=== PATIENT | female | born 1940 | race Caucasian/White ===

== ENCOUNTER 2016-09-10 08:19 | Day surgery (SDC) | payer MEDICARE, BC ==
[2016-09-06 12:05] VITALS: BMI 28.0
[2016-09-10 08:46] VITALS: TEMP 98.2
[2016-09-10] MEDS: LACTATED RINGERS 1,000 ML IV ONE ×2 (09:01→09:46)
[2016-09-10] MEDS ORDERED: LIDOCAINE 1% 20 ML VIAL (10MG/ML) FOR IV START INTRADERMA ONE (09:01)
[2016-09-10] MEDS ORDERED: LIDOCAINE 1% INJ 10MG/ML (20 ML MDV) ONE (09:48)
[2016-09-10] MEDS ORDERED: PROPOFOL 10 MG/ML 20 ML VIAL IV ONE (09:48)
[2016-09-10] MEDS ORDERED: MIDAZOLAM 2 MG/2 ML VIAL ONE (09:48)
--- NOTE | 2016-09-10 10:09 | P.GSHP ---
History of Present Illness H&P Date: 09/10/16 Chief Complaint: Peptic ulcer disease, dysphagia This is a 76-year-old female referred from Dr. Kearns. Patient has complaints of some intermittent cervical dysphagia as well as a history of peptic ulcer disease. She presents today for EGD. She's had an esophagram which is normal. Past Medical History Past Medical History: GERD/Reflux, Hyperlipidemia, Osteoarthritis (OA) Additional Past Medical History / Comment(s): varicose veins, currently having feeling that something is stuck in her throat, stomach ulcer. History of Any Multi-Drug Resistant Organisms: None Reported Past Surgical History: Section, Cholecystectomy, Hernia Repair, Hysterectomy, Joint Replacement, Orthopedic Surgery, Tubal Ligation Additional Past Surgical History / Comment(s): D&C, arthoscopy right knee, right knee replacement, colonoscopy, EGD. Past Anesthesia/Blood Transfusion Reactions: Previous Problems w/ Anesthesia, Postoperative Nausea & Vomiting (PONV) Additional Past Anesthesia/Blood Transfusion Reaction / Comment(s): spinal anesthesia severe PONV Past Psychological History: No Psychological Hx Reported Smoking Status: Never smoker Past Alcohol Use History: Daily Additional Past Alcohol Use History / Comment(s): States soaks 20 yellow raisins in Gin and eats them every day. Past Drug Use History: None Reported - Past Family History Father Family Medical History: Cancer Medications and Allergies Home Medications Medication Instructions Recorded Confirmed Type Aspirin 81 mg PO DAILY 02/23/14 09/10/16 History Loratadine [Claritin] 10 mg PO HS 02/23/14 09/10/16 History Omeprazole [PriLOSEC] 20 mg PO BID 02/23/14 09/10/16 History Enzacta 1 tab PO DAILY 07/04/16 09/10/16 History Equate Stool Softener 100 mg PO DAILY 07/04/16 09/10/16 History L.acidoph,Paracasei, B.lactis 1 each PO DAILY 07/04/16 09/10/16 History [Probiotic] Multivitamins, Thera [Multivitamin] 2 tab PO DAILY 07/04/16 09/10/16 History Rosuvastatin Calcium [Crestor] 10 mg PO HS 07/04/16 09/10/16 History Areds 1 tab PO DAILY 09/06/16 09/10/16 History Propylene Glycol/Peg 400/Pf 1 drop BOTH EYES DIRECTED PRN 09/06/16 09/10/16 History [Systane 0.3-0.4% Eye Drops] Allergies Allergy/AdvReac Type Severity Reaction Status Date / Time No Known Allergies Allergy Verified 09/10/16 08:33 Surgical - Exam Vital Signs Temp Pulse Resp BP Pulse Ox 98.2 F 64 18 184/84 98 09/10/16 08:45 09/10/16 08:45 09/10/16 08:45 09/10/16 08:45 09/10/16 08:45 - General well developed, no distress - Eyes PERRL - ENT normal pinna - Neck no masses - Respiratory normal expansion - Cardiovascular Rhythm: regular - Abdomen Abdomen: soft, non tender Assessment and Plan Plan: Peptic ulcer disease Intermittent dysphagia We'll perform EGD.
--- NOTE | 2016-09-10 10:18 | P.OP ---
Date of Procedure: 09/10/16 Preoperative Diagnosis: Peptic ulcer disease Postoperative Diagnosis: Antral ulcer Procedure(s) Performed: EGD Anesthesia: MAC Surgeon: Mihir Malave Pathology: other (Antrum) Condition: stable Disposition: PACU Description of Procedure: The patient's placed on the endoscopy table in the lateral position. She received IV sedation. The gastroscope some placed oropharynx the cervical esophagus and hypopharynx were examined. There is known to any inflammation to explain the patient's symptoms of something being stuck in her neck. The scope was then placed the esophagus and passed down to the stomach and into the first and second portion of duodenum. This appeared normal. The scope was then brought back the antrum and there was a small antral ulcer seen. This was biopsied. Scope was retroflexed and remainder stomach appeared normal. Scope was then brought back into the distal esophagus this appeared normal. There is no evidence of a hiatal hernia. The distal esophagus. Normal. The scope was then brought back the proximal esophagus this appeared normal. Scope withdrawn for patient.
[2016-09-10 10:37] VITALS: RESP 18
[2016-09-10 10:57] VITALS: BP 155/80; PULSE 62
== END 2016-09-10 11:02 | disposition home or self-care (01) ==
LOC: ORWHC2ENDO 08:19
PROVIDERS: ATTEND Surgery
DX: K25.9 Gastric ulcer, unspecified as acute or chronic, without hemorrhage or perforation (principal); K29.50 Unspecified chronic gastritis without bleeding; Z87.11 Personal history of peptic ulcer disease; K21.9 Gastro-esophageal reflux disease without esophagitis; E78.5 Hyperlipidemia, unspecified; M19.90 Unspecified osteoarthritis, unspecified site; Z79.82 Long term (current) use of aspirin; Z79.899 Other long term (current) drug therapy
CPT/HCPCS: 88305; 88342; 43239; J2250; J2001; J2704; 99153

== ENCOUNTER 2016-11-01 07:53 | Day surgery (SDC) | payer MEDICARE, BC ==
[2016-10-30 10:35] VITALS: BMI 27.4
[~2016-11-01 07:53] MED LIST: LACTATED RINGERS 1,000 ML IV SCH; LIDOCAINE 1% 20 ML VIAL (10MG/ML) FOR IV START INTRADERMA PRN
[2016-11-01 08:07] VITALS: RESP 16; TEMP 97.5
[2016-11-01] MEDS ORDERED: PROPOFOL 10 MG/ML 20 ML VIAL IV ONE (08:32)
[2016-11-01] MEDS ORDERED: LIDOCAINE 1% INJ 10MG/ML (20 ML MDV) ONE (08:32)
--- NOTE | 2016-11-01 08:40 | P.GSHP ---
History of Present Illness H&P Date: 11/01/16 Chief Complaint: Peptic ulcer disease Cyst 76-year-old female who's had complaints of epigastric pain. She has a previous history of gastric ulcer. She presents today for EGD. - Constitutional Constitutional: Reports as per HPI Past Medical History Past Medical History: GERD/Reflux, Hyperlipidemia, Osteoarthritis (OA), Pneumonia Additional Past Medical History / Comment(s): varicose veins, pneumonia 2-3 years ago, ulcer History of Any Multi-Drug Resistant Organisms: None Reported Past Surgical History: Section, Cholecystectomy, Hernia Repair, Hysterectomy, Orthopedic Surgery, Tubal Ligation Additional Past Surgical History / Comment(s): D&C, arthoscopy right knee, right knee replacement, colonoscopy, EGD. Past Anesthesia/Blood Transfusion Reactions: No Reported Reaction Past Psychological History: No Psychological Hx Reported Smoking Status: Never smoker Past Alcohol Use History: Daily Additional Past Alcohol Use History / Comment(s): States takes 10 raisens soaked in Gin and eats them every day. Past Drug Use History: None Reported - Past Family History Father Family Medical History: Cancer Medications and Allergies Home Medications Medication Instructions Recorded Confirmed Type Aspirin 81 mg PO DAILY 02/23/14 10/30/16 History Loratadine [Claritin] 10 mg PO HS 02/23/14 10/30/16 History Equate Stool Softener 100 mg PO DAILY 07/04/16 10/30/16 History L.acidoph,Paracasei, B.lactis 1 each PO HS 07/04/16 10/30/16 History [Probiotic] Multivitamins, Thera [Multivitamin] 2 tab PO DAILY 07/04/16 10/30/16 History Ranitidine HCl 150 mg PO HS 10/30/16 11/01/16 History Vit C/E/Zn/Coppr/Lutein/Zeaxan 1 each PO BID 10/30/16 11/01/16 History [Preservision Areds 2 Softgel] Allergies Allergy/AdvReac Type Severity Reaction Status Date / Time No Known Allergies Allergy Verified 10/30/16 10:21 Surgical - Exam Vital Signs Temp Pulse Resp BP Pulse Ox 97.5 F L 68 16 169/85 96 11/01/16 08:06 11/01/16 08:06 11/01/16 08:06 11/01/16 08:11/01/16 08:06 - General well developed, no distress - Eyes PERRL - ENT normal pinna - Neck no masses - Respiratory normal expansion - Cardiovascular Rhythm: regular - Abdomen Abdomen: soft, non tender Assessment and Plan Plan: Peptic ulcer disease. We'll perform EGD.
--- NOTE | 2016-11-01 08:54 | P.OP ---
Date of Procedure: 11/01/16 Preoperative Diagnosis: Peptic ulcer disease Postoperative Diagnosis: Antral gastritis Procedure(s) Performed: EGD Anesthesia: MAC Surgeon: Mihir Malave Pathology: other (Antrum) Condition: stable Disposition: PACU Description of Procedure: The patient's placed on the endoscopy table lateral position. She received IV sedation. The gastroscope some placed oropharynx passed in the esophagus and stomach. The scope was then placed through the pylorus. The first and second portion of the duodenum appeared normal. Scope was then brought back the antrum and antrum appeared inflamed. There the previously seen ulcer had healed. A biopsy antrum performed. The scope was retroflexed the remainder of the stomach some appeared normal. The GE junction was at 39 cm. The distal esophagus appeared normal. The proximal esophagus appeared normal. Scope was withdrawn for patient.
[2016-11-01 09:08] VITALS: BP 147/67; PULSE 63
== END 2016-11-01 09:48 | disposition home or self-care (01) ==
LOC: ORWHC2ENDO 07:53
PROVIDERS: ATTEND Surgery
DX: K29.50 Unspecified chronic gastritis without bleeding (principal); K21.9 Gastro-esophageal reflux disease without esophagitis; E78.5 Hyperlipidemia, unspecified; M19.90 Unspecified osteoarthritis, unspecified site; Z79.82 Long term (current) use of aspirin; Z79.899 Other long term (current) drug therapy; Z87.11 Personal history of peptic ulcer disease
CPT/HCPCS: 43239; 88305; 88342; J2001; J2704

== ENCOUNTER → 2018-07-02 | Outpatient (CLI) | payer MEDICARE, BC ==
[2018-07-02 15:51] LABS: Appearance,Urine Clear (Clear); Bilirubin,Urine Negative (Negative); Blood,Urine Negative (Negative); Color,Urine Light Yellow; Glucose,Urine (UA) Negative (Negative); Ketones,Urine Negative (Negative); Leukocyte Esterase,Urine Negative (Negative); Nitrite,Urine Negative (Negative); PH, Urine 7.5 (5.0-8.0); Protein,Urine Negative (Negative); Specific Gravity,Urine 1.009 (1.001-1.035); Urobilinogen,Urine <2.0 mg/dL (<2.0)
[2018-07-02 15:55] LABS: HCT 44.3 % (34.0-46.0); HGB 13.7 gm/dL (11.4-16.0); MCH 28.1 pg (25.0-35.0); MCHC 30.9 g/dL (31.0-37.0); MCV 90.7 fL (80.0-100.0); Mean Platelet Volume 6.9; Platelet Count 223 k/uL (150-450); RBC 4.88 m/uL (3.80-5.40); RDW 14.4 % (11.5-15.5); WBC 4.6 k/uL (3.8-10.6)
[2018-07-02 16:06] LABS: Partial Thromboplastin Time 23.7 sec (22.0-30.0); Prothrombin Time 10.2 sec (9.0-12.0)
[2018-07-02 16:47] LABS: Albumin 3.8 g/dL (3.5-5.0); Calcium 9.5 mg/dL (8.4-10.2); Total Bilirubin 0.6 mg/dL (0.2-1.3); Total Protein 6.8 g/dL (6.3-8.2)
== END ==
LOC: LABPAT 14:06
PROVIDERS: ATTEND Orthopaedic Surgery
DX: Z01.818 Encounter for other preprocedural examination (principal); Z01.812 Encounter for preprocedural laboratory examination; Z79.01 Long term (current) use of anticoagulants
CPT/HCPCS: 80053; 81003; 85027; 85610; 85730; 87070; 93005

== ENCOUNTER 2018-07-14 12:55 | Inpatient (IN) | payer MEDICARE, BC ==
[2018-07-10 08:32] VITALS: BMI 29.0
[~2018-07-14 12:55] MED LIST changes: +ACETAMINOPHEN TAB 500 MG TAB PO ONE; +HYDROmorphone 1 MG/ML 1 ML SYRINGE IVP PRN; -LACTATED RINGERS 1,000 ML IV SCH; -LIDOCAINE 1% 20 ML VIAL (10MG/ML) FOR IV START INTRADERMA PRN; +MIDAZOLAM 2 MG/2 ML VIAL IV PRN; +ONDANSETRON 4 MG/2 ML VIAL IVP ONE; +TRANEXAMIC ACID 1,000 MG in SODIUM CHLORIDE 0.9% 50 ML IVPB ONE
[2018-07-14] MEDS ORDERED: LIDOCAINE 1% 20 ML VIAL (10MG/ML) FOR IV START INTRADERMA ONE (13:44)
[2018-07-14] MEDS: LACTATED RINGERS 1,000 ML IV SCH ×2 (13:44→21:44)
[2018-07-14] MEDS ORDERED: fentaNYL (PF) 50 MCG/ML 2 ML AMP ONE (15:24)
[2018-07-14] MEDS: ceFAZolin IN SWFI 2 GM/20 ML SYRINGE IVP ONE ×2 (15:24→16:07)
[2018-07-14] MEDS ORDERED: TRANEXAMIC ACID 1,000 MG/10 ML VIAL ONE (15:24)
[2018-07-14] MEDS ORDERED: MIDAZOLAM 2 MG/2 ML VIAL ONE (15:24)
[2018-07-14] MEDS ORDERED: SODIUM CHLORIDE 0.9% 100 ML BAG ONE (15:24)
[2018-07-14] MEDS: ROPIVACAINE 246.25 MG, EPINEPHrine 0.5 MG, KETOROLAC 30 MG, cloNIDine HCL/PF 80 MCG, WA... MISCELLANE ONE ×10 (16:07→16:40)
[2018-07-14] MEDS ORDERED: ceFAZolin 3,000 MG in SODIUM CHLORIDE 0.9% IRRIGATIO 3,000 ML IRRIGATION ONE (16:07)
[2018-07-14] MEDS ORDERED: NALOXONE 0.4 MG/ML 1 ML VIAL IV PRN (17:45)
[2018-07-14] MEDS ORDERED: HYDROmorphone 1 MG/ML 1 ML SYRINGE IVP PRN ×3 (17:45)
[2018-07-14] MEDS ORDERED: HYDROcodone/APAP 5-325MG 1 EACH TAB PO PRN ×2 (17:45)
[2018-07-14] MEDS ORDERED: BISACODYL 10 MG SUPP RECTAL PRN (17:45)
[2018-07-14] MEDS ORDERED: NA PHOS,M-B/NA PHOS,DI-BA 133 ML ENEMA RECTAL PRN (17:45)
[2018-07-14] MEDS ORDERED: ONDANSETRON 4 MG/2 ML VIAL IVP PRN (17:45)
[2018-07-14] MEDS ORDERED: TEMAZEPAM 15 MG CAP PO PRN (17:45)
[2018-07-14] MEDS ORDERED: MAGNESIUM HYDROXIDE 2,400 MG/10 ML CUP PO PRN (17:45)
[2018-07-14] MEDS ORDERED: hydrOXYzine PAMOATE 25 MG CAP PO PRN (17:45)
--- NOTE | 2018-07-14 19:09 | XR ---
EXAMINATION TYPE: XR knee limited LT DATE OF EXAM: 07/14/2018 COMPARISON: NONE HISTORY: Postop TECHNIQUE: 2 views FINDINGS: There is a left knee prosthesis. Components are in anatomic position. IMPRESSION: No complicating process seen.
[2018-07-14] MEDS: SENNOSIDES-DOCUSATE SODIUM 1 EACH TAB PO SCH (21:43)
[2018-07-14] MEDS: ceFAZolin IN SWFI 2 GM/20 ML SYRINGE IVP SCH (22:22)
[2018-07-15] MEDS: LACTATED RINGERS 1,000 ML IV SCH ×3 (06:15→20:38)
[2018-07-15 07:42] LABS: Basophils % (A) 0 %; Eosinophils # (A) 0.1 k/uL (0-0.7); Eosinophils % (A) 1 %; HCT 37.9 % (34.0-46.0); HGB 12.1 gm/dL (11.4-16.0); Lymphocytes # (A) 0.7 k/uL (1.0-4.8); Lymphocytes % (A) 8 %; MCH 28.7 pg (25.0-35.0); MCHC 31.9 g/dL (31.0-37.0); MCV 89.8 fL (80.0-100.0); Mean Platelet Volume 7.1; Monocytes # (A) 0.4 k/uL (0-1.0); Monocytes % (A) 4 %; Neutrophils # (A) 7.1 k/uL (1.3-7.7); Neutrophils % (A) 85 %; Platelet Count 174 k/uL (150-450); RBC 4.23 m/uL (3.80-5.40); RDW 14.4 % (11.5-15.5); WBC 8.4 k/uL (3.8-10.6)
[2018-07-15] MEDS: RIVAROXABAN 10 MG TAB PO SCH (08:23)
[2018-07-15] MEDS: MELOXICAM 7.5 MG TAB PO SCH (08:23)
[2018-07-15] MEDS: ceFAZolin IN SWFI 2 GM/20 ML SYRINGE IVP SCH (08:26)
--- NOTE | 2018-07-15 10:29 | P.CONS ---
History of Present Illness - Reason for Consult Consult date: 07/15/18 medical management Requesting physician: Urbano Sharma - Chief Complaint s/p left TKA - History of Present Illness 78-year-old female who underwent elective left total knee arthroplasty. Dr. Kearns was consulted for medical management. The patient has a history of osteoarthritis, pneumonia, and hyperlipidemia. The patient was examined at the bedside with Dr. Kearns. Denies nausea or vomiting. Denies shortness of breath, cough, or congestion. Reports pain is tolerable at this time. Patient is anticipating working with physical therapy today. Vital signs have been stable. REVIEW OF SYSTEMS: GENERAL: Patient denies fever. Denies chills. EYES: Denies blurred vision. Denies vision changes. Denies eye pain. EARS, NOSE, MOUTH, & THROAT: Denies headache. Denies sore throat. Denies ear pain. RESPIRATORY: Denies cough. Denies shortness of breath. Denies sputum production. Denies hemoptysis. CARDIOVASCULAR: Denies chest pain or pressure. Denies palpitations. Denies arrhythmias. GASTROINTESTINAL: Denies abdominal pain. Denies diarrhea. Denies constipation. Denies nausea. Denies vomiting. Denies heartburn. Denies blood in the stool. GENITOURINARY: Denies urinary frequency. Denies burning. Denies dysuria. Denies cloudy urine. Denies blood in the urine. MUSCULOSKELETAL: Denies myalgias. Denies joint swelling. INTEGUMENTARY: Denies pruitis. Denies rash. PSYCHIATRIC: Denies suicidal or homicial ideations. ENDOCRINE: Denies weight change. Denies polydipsia. Denies polyuria. HEMATOLOGIC: Denies bleeding disorders. PHYSICAL EXAM: GENERAL: This is a 78-year-old female in no apparent distress at the time of examination. Pleasant and cooperative. HEENT: Head is atraumatic, normocephalic. Pupils are equal, round, and reactive to light. Sclerae anicteric. Conjunctivae are clear. Mucus membranes of the mouth are moist. Neck is supple. RESPIRATORY: Clear to auscultation. No wheezes, rales, or rhonchi. No use of accessory muscles. Patient maintaining oxygen saturation greater than 92%. No chest wall tenderness is noted on palpation or with deep breathing. CARDIOVASCULAR: Regular rate and rhythm. S1 and S2 noted. Systolic murmur auscultated. No JVD noted. No S3 or S4 noted. GASTROINTESTINAL: No distention noted. Abdomen soft and round. Normal active bowel sounds auscultated x 4 quadrants. No pain or tenderness noted upon palpation. INTEGUMENTARY: Dressing to left knee clean dry and intact. No cyanosis. No jaundice. No rashes noted. No cellulitis noted. EXTREMITIES: 2+ peripheral pulses. No evidence of peripheral edema. No calf tenderness noted. NEUROLOGIC: Cranial nerves II-XII intact. PSYCHIATRIC: Awake, alert, and oriented X 3. Appropriate affect. Intact judgement and insight. ASSESSMENT: Osteoarthritis, status post left total knee arthroplasty Hyperlipidemia PLAN: Continue postoperative care per orthopedics. Activity as tolerated. PT/OT. Pain control. Resume home medications as appropriate. Monitor vital signs and address as appropriate. Incentive spirometer 10 times hour while awake. DVT prophylaxis: Xarelto 10 mg by mouth daily. GI prophylaxis: Pepcid 20 mg daily. Thank you for this consultation. We will continue to follow with the patient during their hospitalization. The patient is stable for discharge from a medical standpoint when cleared for discharge by attending/admitting physician Nurse practitioner note has been reviewed by physician. Signing provider agrees with the documented findings, assessment, and plan of care. Past Medical History Past Medical History: Hyperlipidemia, Osteoarthritis (OA), Pneumonia Additional Past Medical History / Comment(s): varicose veins, pneumonia 2-3 years ago, hx ulcer History of Any Multi-Drug Resistant Organisms: None Reported Past Surgical History: Bladder Surgery, Section, Cholecystectomy, Hernia Repair, Hysterectomy, Joint Replacement, Orthopedic Surgery, Tubal Ligation Additional Past Surgical History / Comment(s): D&C, arthoscopy right knee, right knee replacement, colonoscopy, EGD, [employer]S Past Anesthesia/Blood Transfusion Reactions: Postoperative Nausea & Vomiting ( PONV) Additional Past Anesthesia/Blood Transfusion Reaction / Comm: states with spinal anesthesia Past Psychological History: No Psychological Hx Reported Smoking Status: Never smoker Past Alcohol Use History: None Reported Additional Past Alcohol Use History / Comment(s): States takes 10 raisens soaked in Gin and eats them every day. Past Drug Use History: None Reported - Past Family History Father Family Medical History: Cancer Medications and Allergies Home Medications Medication Instructions Recorded Confirmed Type Aspirin 81 mg PO DAILY 02/23/14 07/14/18 History Loratadine [Claritin] 10 mg PO HS 02/23/14 07/14/18 History L.acidoph,Paracasei, B.lactis 1 cap PO HS 07/04/16 07/14/18 History [Probiotic] Multivitamins, Thera [Multivitamin] 2 tab PO DAILY 07/04/16 07/14/18 History Vit C/E/Zn/Coppr/Lutein/Zeaxan 1 cap PO BID 10/30/16 07/14/18 History [Preservision Areds 2 Softgel] Aspirin [Adult Low Dose Aspirin EC] 81 mg PO DAILY #1 tablet. 07/14/18 Rx Docusate [Colace] 100 mg PO DAILY 07/14/18 07/14/18 History HYDROcodone/APAP 5-325MG [[place] 1 - 2 each PO Q4-6H PRN #50 tab 07/14/18 Rx 5-325] Propylene Glycol/Peg 400/Pf 1 drop BOTH EYES DAILY PRN 07/14/18 07/14/18 History [Systane 0.3-0.4% Eye Drops] Rivaroxaban [Xarelto] 10 mg PO DAILY #5 tab 07/14/18 Rx Sennosides-Docusate Sodium 1 tab PO BID #60 tablet 07/14/18 Rx [Senokot-S] Allergies Allergy/AdvReac Type Severity Reaction Status Date / Time No Known Allergies Allergy Verified 07/14/18 21:30 Physical Exam Vitals: Vital Signs Temp Pulse Pulse Pulse Resp BP Pulse Ox 07/15/18 07:50 98.7 F 71 18 136/68 94 L 07/15/18 00:00 16 07/14/18 23:00 98.5 F 54 L 16 113/55 94 L 07/14/18 21:45 16 07/14/18 21:20 98.2 F 69 16 109/66 97 07/14/18 20:45 65 136/61 94 L 07/14/18 20:37 64 99/52 90 L 07/14/18 20:22 64 111/54 90 L 07/14/18 20:07 62 112/56 89 L 07/14/18 19:52 64 117/53 93 L 07/14/18 19:38 73 135/64 91 L 07/14/18 19:08 66 115/50 95 07/14/18 18:53 63 156/73 93 L 07/14/18 18:43 59 L 16 121/60 93 L 07/14/18 18:28 61 16 142/66 95 07/14/18 18:12 57 L 16 147/74 96 07/14/18 17:57 58 L 16 147/62 94 L 07/14/18 17:42 97.1 F L 67 16 144/66 100 07/14/18 13:29 98.4 F 79 16 158/73 98 Intake and Output 07/14/18 07/15/18 07/15/18 22:59 06:59 14:59 Intake Total 1181 Output Total 125 Balance 1056 Intake: IV 601 Intake, IV Titration 100 Amount Lactated Ringers 1,000 ml 100 @ 100 mls/hr IV .Q10H [facility] Rx#:[id number] Oral 480 Output: Estimated Blood Loss 125 Other: Voiding Method Toilet # Voids 1 1 Results CBC & Chem 7: 07/15/18 06:19 Labs: Abnormal Lab Results - Last 24 Hours (Table) 07/15/18 Range/Units 06:19 Lymphocytes # 0.7 L (1.0-4.8) k/uL
--- NOTE | 2018-07-15 12:55 | P.PN ---
Subjective Progress Note Date: 07/15/18 Principal diagnosis: Primary osteoarthritis left knee. Status post total left knee arthroplasty. This is a 78-year-old female with history of osteoarthritis of the left knee. She is status post total left knee arthroplasty. She is doing well from an orthopedic standpoint. She states that she had some nausea this morning and did not feel well secondary to narcotic pain medication. She refused physical therapy this morning due to feeling ill. She is feeling better at this time but states that she will not be going home today. Vital signs and labs are stable. Objective - Vital Signs Vital signs: Vital Signs Temp 98.7 F 07/15/18 07:50 Pulse 71 07/15/18 07:50 Resp 18 07/15/18 07:50 BP 136/68 07/15/18 07:50 Pulse Ox 94 L 07/15/18 07:50 Intake & Output 07/14/18 07/15/18 07/15/18 18:59 06:59 18:59 Intake Total 901 580 Output Total 125 Balance 776 580 Intake: IV 901 Intake, IV Titration 100 Amount Lactated Ringers 1,000 ml 100 @ 100 mls/hr IV .Q10H [facility] Rx#:[id number] Oral 480 Output: Estimated Blood Loss 125 Other: Voiding Method Toilet # Voids 1 - Exam This is a 78-year-old female in no acute distress. She is alert and oriented 3. Exam of the left knee reveals that her dressing is clean, dry and intact. There is mild soft tissue swelling about the knee. She has full foot and ankle motion without difficulty or pain. Neurovascular status to the lower extremity is intact. - Labs CBC & Chem 7: 07/15/18 06:19 Labs: Abnormal Lab Results - Last 24 Hours (Table) 07/15/18 Range/Units 06:19 Lymphocytes # 0.7 L (1.0-4.8) k/uL Assessment and Plan (1) Macular degeneration Current Visit: Yes Status: Acute Code(s): H35.30 - UNSPECIFIED MACULAR DEGENERATION SNOMED Code(s): 673199594 (2) Hyperlipidemia Current Visit: Yes Status: Acute Code(s): E78.5 - HYPERLIPIDEMIA, UNSPECIFIED SNOMED Code(s): 03019305 (3) Osteoarthritis of left knee Current Visit: Yes Status: Acute Code(s): M17.12 - UNILATERAL PRIMARY OSTEOARTHRITIS, LEFT KNEE SNOMED Code(s): 104609462455128 (4) S/P total knee arthroplasty Current Visit: Yes Status: Acute Code(s): Z96.659 - PRESENCE OF UNSPECIFIED ARTIFICIAL KNEE JOINT SNOMED Code(s): 3640283693894 Plan: The clinical findings are discussed the patient. I recommended that she be evaluated by physical therapy now that she is feeling better and possibly prepare to be discharged to home later today. The patient states that she will not be going home today and that she currently does not have a ride. She became slightly agitated with discussion of possibly going home later today. She is planning for discharge to home tomorrow.
[2018-07-15] MEDS: FAMOTIDINE 20 MG TAB PO SCH (20:38)
[2018-07-15] MEDS: traMADol 50 MG TAB PO PRN (20:38)
[2018-07-15] MEDS: SENNOSIDES-DOCUSATE SODIUM 1 EACH TAB PO SCH (20:38)
[2018-07-15] MEDS ORDERED: FAMOTIDINE 20 MG TAB PO SCH (21:00)
[2018-07-15] MEDS ORDERED: LORATADINE 10 MG TAB PO SCH (21:00)
[2018-07-16] MEDS: LACTATED RINGERS 1,000 ML IV SCH ×2 (01:18→03:19)
[2018-07-16] MEDS: traMADol 50 MG TAB PO PRN ×2 (03:18→08:39)
[2018-07-16 03:23] VITALS: RESP 16
[2018-07-16] MEDS: RIVAROXABAN 10 MG TAB PO SCH (08:39)
[2018-07-16] MEDS: FAMOTIDINE 20 MG TAB PO SCH (08:39)
[2018-07-16] MEDS: MELOXICAM 7.5 MG TAB PO SCH (08:40)
--- NOTE | 2018-07-16 09:11 | P.PN ---
Subjective Progress Note Date: 07/16/18 78-year-old female who underwent elective left total knee arthroplasty. Dr. Kearns was consulted for medical management. The patient has a history of osteoarthritis, pneumonia, and hyperlipidemia. 07/15/2018 The patient was examined at the bedside with Dr. Kearns. Denies nausea or vomiting. Denies shortness of breath, cough, or congestion. Reports pain is tolerable at this time. Patient is anticipating working with physical therapy today. Vital signs have been stable. 07/16/2018 Patient examined at the bedside with Dr. Kearns. Patient reports she did not work with PT yesterday morning because she was not feeling well. She does report that she ambulated in the hallway yesterday afternoon. She denies nausea or vomiting. Reports her pain is tolerable this morning. Denies chest pain or shortness of breath. Vital signs are stable. Anticipate discharge home today. PHYSICAL EXAM: GENERAL: This is a 78-year-old female in no apparent distress at the time of examination. Pleasant and cooperative. HEENT: Head is atraumatic, normocephalic. Pupils are equal, round, and reactive to light. Sclerae anicteric. Conjunctivae are clear. Mucus membranes of the mouth are moist. Neck is supple. RESPIRATORY: Clear to auscultation. No wheezes, rales, or rhonchi. No use of accessory muscles. Patient maintaining oxygen saturation greater than 92%. No chest wall tenderness is noted on palpation or with deep breathing. CARDIOVASCULAR: Regular rate and rhythm. S1 and S2 noted. Systolic murmur auscultated. No JVD noted. No S3 or S4 noted. GASTROINTESTINAL: No distention noted. Abdomen soft and round. Normal active bowel sounds auscultated x 4 quadrants. No pain or tenderness noted upon palpation. INTEGUMENTARY: Dressing to left knee clean dry and intact. No cyanosis. No jaundice. No rashes noted. No cellulitis noted. EXTREMITIES: 2+ peripheral pulses. No evidence of peripheral edema. No calf tenderness noted. NEUROLOGIC: Cranial nerves II-XII intact. PSYCHIATRIC: Awake, alert, and oriented X 3. Appropriate affect. Intact judgement and insight. ASSESSMENT: Osteoarthritis, status post left total knee arthroplasty Hyperlipidemia PLAN: Continue postoperative care per orthopedics. Activity as tolerated. PT/OT. Pain control. Resume home medications as appropriate. Monitor vital signs and address as appropriate. Incentive spirometer 10 times hour while awake. DVT prophylaxis: Xarelto 10 mg by mouth daily. GI prophylaxis: Pepcid 20 mg daily. The patient is stable for discharge from a medical standpoint when cleared for discharge by attending/admitting physician Nurse practitioner note has been reviewed by physician. Signing provider agrees with the documented findings, assessment, and plan of care. Objective - Vital Signs Vital signs: Vital Signs Temp 98.4 F 07/16/18 07:00 Pulse 61 07/16/18 07:00 Resp 16 07/16/18 07:00 BP 137/61 07/16/18 07:00 Pulse Ox 95 07/16/18 07:00 Intake & Output 07/15/18 07/16/18 07/16/18 18:59 06:59 18:59 Other: # Voids 2 1 - Labs CBC & Chem 7: 07/15/18 06:19
--- NOTE | 2018-07-16 10:51 | P.PN ---
Subjective Progress Note Date: 07/16/18 Principal diagnosis: Primary osteoarthritis left knee. Status post total left knee arthroplasty. This is a 78-year-old female with history of osteoarthritis of the left knee. She is status post total left knee arthroplasty. She is doing fairly well from an orthopedic standpoint. She is having increased pain today. Her nausea is improved. She was told by her primary care physician that she may be staying in the hospital another day or 2. Vital signs are stable. Objective - Vital Signs Vital signs: Vital Signs Temp 98.4 F 07/16/18 07:00 Pulse 61 07/16/18 07:00 Resp 16 07/16/18 07:00 BP 137/61 07/16/18 07:00 Pulse Ox 95 07/16/18 07:00 Intake & Output 07/15/18 07/16/18 07/16/18 18:59 06:59 18:59 Other: # Voids 2 1 - Exam This is a 78-year-old female in no acute distress. She is alert and oriented 3. Exam of the left knee reveals that her dressing is clean, dry and intact. There is mild to moderate soft tissue swelling about the knee and lower leg. She has full foot and ankle motion without difficulty or pain. Neurovascular status to the lower extremity is intact. Eyewitness the patient ambulating with physical therapy. She is able to ambulate with minimal assistance using her walker. - Labs CBC & Chem 7: 07/15/18 06:19 Assessment and Plan (1) Macular degeneration Current Visit: Yes Status: Acute Code(s): H35.30 - UNSPECIFIED MACULAR DEGENERATION SNOMED Code(s): 439291677 (2) Hyperlipidemia Current Visit: Yes Status: Acute Code(s): E78.5 - HYPERLIPIDEMIA, UNSPECIFIED SNOMED Code(s): 26759410 (3) Osteoarthritis of left knee Current Visit: Yes Status: Acute Code(s): M17.12 - UNILATERAL PRIMARY OSTEOARTHRITIS, LEFT KNEE SNOMED Code(s): 843036443273935 (4) S/P total knee arthroplasty Current Visit: Yes Status: Acute Code(s): Z96.659 - PRESENCE OF UNSPECIFIED ARTIFICIAL KNEE JOINT SNOMED Code(s): 7177423336459 Plan: The clinical findings are discussed the patient. The patient is encouraged to continue with ambulation with a walker. We discussed her pain management. The Dane made her sick so we will stick with the Ultram and Mobic. She is to keep ice on the knee. We're planning hopefully discharge to home tomorrow.
[2018-07-16 15:07] VITALS: BP 105/54; PULSE 72; TEMP 98.3
--- NOTE | 2018-08-06 09:39 | P.OP ---
Date of Procedure: 07/14/18 Procedure(s) Performed: PREOPERATIVE DIAGNOSIS: Left knee severe osteoarthritis with genu varum POSTOPERATIVE DIAGNOSIS: Left knee severe osteoarthritis with genu varum OPERATION: Left knee cemented total replacement arthroplasty. ANESTHESIA: Spinal ESTIMATED BLOOD LOSS: 100 ml. INDUSTRIAL RELATIONS SPECIALIST: Bre Duncan PA-C (assistance with: patient positioning, retraction, exposure, hemostasis, leg positioning, implantation, irrigation, closure, dressing) COMPLICATIONS: None apparent. COMPONENTS IMPLANTED: Persona system from [place] INDICATIONS: Mrs. Moreno is a 78-year-old female with a history of left knee osteoarthritis. Conservative treatment has been tried and has been unsuccessful in controlling symptoms adequately. The operation of knee replacement has been discussed at length in the office, as well as potential risks and complications. These are inclusive of, but not limited to: bleeding, infection, scarring, discomfort, blood vessel and nerve damage, need for further surgery, failure to relieve symptoms, persistence, recurrence, or worsening of problems, loosening, dislocation, wear, blood clot, pulmonary embolism, , gait dysfunction, stiffness, and other risks as discussed in the office. The patient elects to proceed and the consent form has been signed. PROCEDURE: The patient was taken to the operating room and positioned on the operating room table in the supine position. Anesthesia was initiated. Care was taken to make sure that all pressure points were adequately padded. The operative lower extremity was prepped and draped in the usual aseptic fashion using ChloraPrep. Ioban drape was used for the case and the patient received intravenous antibiotics within one hour of the incision. A pneumotourniquet and leg craig were used for the case. The limb was exsanguinated with an Esmarch bandage and the tourniquet was inflated to 350 mmHg. Time-out was called confirming the patient's identity, side, procedure and administration of antibiotics and tranexamic acid, 1 g IV. The incision was then created midline directly over the knee, carried down through skin and into the subcutaneous tissues and down to fascia. Full thickness subcutaneous medial flap was developed. Medial parapatellar arthrotomy was performed and the interior of the knee was inspected. There was end-stage osteoarthritis of the knee with a mild to moderate genu varum type deformity. The fat pad was excised and proximal medial release on the tibia was completed using meticulous dissection and a curved osteotome. The anterior cruciate ligament was taken down. Note was made of significant attrition of the anterior and significant degenerative appearance of the posterior cruciate ligaments. The exposure was excellent. The knee was flexed 90 degrees and the patella was everted. A spot was chosen on the femur approximately 1 cm anterior to the posterior cruciate ligament insertion and an intramedullary hole was created within the femur. The intramedullary guide was then set to 5 degrees of valgus. The distal cutting block was attached and pinned into position. An appropriate amount of distal femoral resection was set. The oscillating saw was then used to make the distal femoral cut. This cut was confirmed to be flat with the flat end of an osteotome. The retractors were placed around the tibia and the tibial surface was addressed. The angle and depth of resection was adjusted using an extramedullary cutting guide. The guide had a built-in 3 degree posterior slope cut. Once the cutting guide was adjusted appropriately and in line with the axis of the tibia and confirmed to be in good position in relation to the second metatarsal and transmalleolar axis, the tibial cut was then created with protection of the posterior neurovascular structures and the collateral ligaments. The tibial cut surface was removed and sized. Femoral sizing was then accomplished using anterior referencing. Care was taken to analyze the posterior condyles for signs of deficiency or severe wear, and adjustments to the guide were made, as appropriate. 3 degree external rotation pins were placed. The cutting jig for the femur was applied to these pins. The planned cuts were further analyzed prior to performing them with the oscillating saw. No femoral notching was produced. Bone fragments were removed and the cut surfaces were finished, as necessary, with a reciprocating saw. Spacer block technique was then used to confirm that the flexion and extension gaps were equal. Soft tissue releases and adjustment of the tibial and/or femoral cuts were made, as necessary, until the gaps were equal. This included release of the posterior cruciate ligament, which was tight in this patient. The femur was then further finished for a posterior cruciate ligament substituting component. Patellar resurfacing was performed using a reamer. The size of the required patellar component was estimated and the patellar surface was then reamed down to a residual thickness which would recreate the [place] thickness with the component. The exact placement of the patellar component was adjusted for position based on preoperative x-rays and intraoperative findings. Prior to placing trial components, anesthetic solution consisting of ropivicaine with epinephrine, ketorolac, and clonidine was injected carefully and methodically in a grid pattern using aspiration technique into the soft tissue around the knee circumferentially, starting with the deeper tissues first and progressing to fascia, and then finally the skin/subcutaneous tissue. Particular care was taken when injecting the posterior capsule. The trial components were inserted. The tibial tray was allowed to self center and the patella was noted to track very well. The position of the tibial component was marked and the tibia was then finished for a stemmed tibial component. Cement was mixed on the back table and applied to the final components. Trial components were removed and the cut surfaces of the bone were pulse lavaged thoroughly and dried. Cement was then applied to the tibial surface and pressurized into the surface using finger pressurization technique. The tibial component was then applied and excess cement was removed after it was impacted securely and noted to be flush with the cut surface. In similar fashion, the cement was applied to the cut femoral surface, pressurized in using finger pressurization and the component was impacted into place. Excess cement was removed. The polyethylene spacer was then implanted and locked into position. The patellar component was then applied in similar technique and a patellar clamp was used to hold the patella in place as the cement hardened. Once the cement had fully hardened, the knee was reinspected. Any other cement extrusion was removed and final kinematic testing showed range of motion from 0 to 130 degrees with excellent stability, both medially and laterally and appropriate alignment of the leg. Patellar tracking was excellent. The knee was then thoroughly pulse lavaged with normal saline. The tourniquet was deflated and hemostasis was obtained with electrocautery and IV tranexamic acid, 1 g given prior to inflation of the tourniquet and another gram given at the time of closure. Closure was with #2 Ethibond in the fascia and supplemented with #2 Quill, 2-0 Vicryl suture was used for the subcutaneous tissues and 3-0 Quill for the skin. Dermabond/Steri-Strips were then applied. A lightly compressive dressing was applied using Webril and an Jose wrap. The patient was then transferred to stretcher and taken to the recovery room in stable condition. Sponge and needle counts were correct.
== END 2018-07-16 17:50 | disposition home health service (06) | DRG 470 ==
LOC: 2ORMAIN 12:55 → 4SSUR 17:32
PROVIDERS: ADMIT Orthopaedic Surgery; ATTEND Orthopaedic Surgery
PROC: 0SRD0J9 Replacement of Left Knee Joint with Synthetic Substitute, Cemented, Open Approach (ICD-10-PCS; principal; 2018-07-14 15:15)
DX: M17.12 Unilateral primary osteoarthritis, left knee (principal); E78.5 Hyperlipidemia, unspecified; M21.162 Varus deformity, not elsewhere classified, left knee; I83.90 Asymptomatic varicose veins of unspecified lower extremity; R11.0 Nausea; H35.30 Unspecified macular degeneration; H40.9 Unspecified glaucoma; Z53.29 Procedure and treatment not carried out because of patient's decision for other reasons; Z79.82 Long term (current) use of aspirin; Z79.899 Other long term (current) drug therapy; Z96.651 Presence of right artificial knee joint; Z98.891 History of uterine scar from previous surgery; Z90.49 Acquired absence of other specified parts of digestive tract; Z87.01 Personal history of pneumonia (recurrent); Z87.11 Personal history of peptic ulcer disease; Z90.710 Acquired absence of both cervix and uterus; Z98.51 Tubal ligation status; Z98.42 Cataract extraction status, left eye; Z98.41 Cataract extraction status, right eye; Z83.3 Family history of diabetes mellitus; Z80.9 Family history of malignant neoplasm, unspecified
CPT/HCPCS: 85025; 88300

== ENCOUNTER 2018-07-18 11:33 | Observation (INO) | payer MEDICARE, BC ==
--- NOTE | 2018-07-18 13:22 | ED ---
General Adult HPI - General Chief complaint: Extremity Injury, Lower Stated complaint: lt knee post op pain Source: patient, family, RN notes reviewed, old records reviewed Mode of arrival: wheelchair - History of Present Illness Initial comments: 78-year-old female patient presents to ED with left knee pain. Patient had a left TKA on Saturday performed by Dr. Sharma. Patient was discharged from hospital on Saturday. Sensory discharge patient felt as if she has not ready to complete activities of daily life. Patient has pain with ambulation and left knee. Patient has difficulty bathing herself, making food, performing other activities of daily life. Patient spoke with her family physician Dr. Kearns who recommended she present to ED. Patient denies any other new complaints. Patient denies chest pain, shortness of breath, abdominal pain, nausea vomiting diarrhea, cough/congestion. Patient denies pain in left calf, pain and right calf, pleuritic chest pain, history of DVT, recent travel. Systemic: Pt denies fatigue, myalgia, fever/chills, rash. Pt denies weakness, night sweats, weight loss. Neuro: Pt denies headache, visual disturbances, syncope or pre-syncope. HEENT: Pt denies ocular discharge or irritation, otalgia, rhinorrhea, pharyngitis or notable lymphadenopathy. Cardiopulmonary: Pt denies chest pain, SOB, heart palpitations, dyspnea on exertion. Abdominal/GI: Pt denies abdominal pain, n/v/d. : Pt denies dysuria, burning w/ urination, frequency/urgency. Denies new onset urinary or bowel incontinence. MSK: Pt denies myalgia, loss of strength or function in extremities. - Related Data Home Medications Medication Instructions Recorded Confirmed Propylene Glycol/Peg 400/Pf 1 drop BOTH EYES DAILY PRN 07/14/18 07/18/18 [Systane 0.3-0.4% Eye Drop] Atorvastatin [Lipitor] 10 mg PO DAILY 07/18/18 07/18/18 Previous Rx's Medication Instructions Recorded Meloxicam [Mobic] 7.5 mg PO DAILY #30 tab 07/16/18 traMADol HCL [Ultram] 50 mg PO Q6HR PRN #50 tab 07/16/18 Allergies Allergy/AdvReac Type Severity Reaction Status Date / Time hydrocodone [From [place]] AdvReac Nausea & Verified 07/18/18 12:40 Vomiting Review of Systems ROS Statement: Those systems with pertinent positive or pertinent negative responses have been documented in the HPI. ROS Other: All systems not noted in ROS Statement are negative. Past Medical History Past Medical History: Hyperlipidemia, Osteoarthritis (OA), Pneumonia Additional Past Medical History / Comment(s): varicose veins, pneumonia 2-3 years ago, hx ulcer History of Any Multi-Drug Resistant Organisms: None Reported Past Surgical History: Bladder Surgery, Section, Cholecystectomy, Hernia Repair, Hysterectomy, Joint Replacement, Orthopedic Surgery, Tubal Ligation Additional Past Surgical History / Comment(s): D&C, arthoscopy right knee, right knee replacement, colonoscopy, EGD, AMBERLY CATARACTS Past Anesthesia/Blood Transfusion Reactions: Postoperative Nausea & Vomiting ( PONV) Additional Past Anesthesia/Blood Transfusion Reaction / Comment(s): states with spinal anesthesia Past Psychological History: No Psychological Hx Reported Smoking Status: Never smoker Past Alcohol Use History: None Reported Past Drug Use History: None Reported - Past Family History Father Family Medical History: Cancer General Exam - General Exam Comments Initial Comments: Constitutional: NAD, AOX3, Pt has pleasant affect. HEENT: NC/AT, trachea midline, neck supple, no lymphadenopathy. Posterior pharynx non erythematous, without exudates. External ears appear normal, without discharge. Mucous membranes moist. Eyes PERRLA, EOM intact. There is no scleral icterus. No pallor noted. Cardiopulmonary: RRR, no murmurs, rubs or gallops, no JVD noted. Lungs CTAB in anterior and posterior reilly. No peripheral edema. Abdominal exam: Abdomen soft and non-distended. Abdomen non-tender to palpation in all 4 quadrants. Bowel sounds active in LLQ. No hepatosplenomegaly. Neuro: CN II-XII grossly intact. MSK: Incision site clean, no discharge, no streaking, no erythema. Posterior calf nontender to palpation bilaterally. Caridad sign negative bilaterally. Tibialis posterior +2 bilaterally. Course Vital Signs 07/18/18 07/18/18 07/18/18 11:40 14:00 17:34 Temperature 97.9 F Pulse Rate 91 75 74 Respiratory 20 18 18 Rate Blood Pressure 112/58 128/68 130/74 O2 Sat by Pulse 99 98 96 Oximetry Medical Decision Making - Medical Decision Making 78-year-old female patient presents to ED status post left TKA. Patient states that she was discharged from hospital approximately 2 days ago. Patient believes she was discharged to [place], unable ablate secondary to pain, unable to complete activities of daily life. Patient has no acute complaints. Physical exam did not reveal any gross pathology. Basic labs and EKG did not reveal pathology. Patient to be admitted for symptom control and continued evaluation. Case discussed with Dr. Larsen. - Lab Data Result diagrams: 07/18/18 13:39 07/18/18 13:39 Lab Results 07/18/18 07/18/18 07/18/18 Range/Units 13:39 13:39 15:35 WBC 7.0 (3.8-10.6) k/uL RBC 3.61 L (3.80-5.40) m/uL Hgb 10.6 L (11.4-16.0) gm/dL Hct 32.0 L (34.0-46.0) % MCV 88.6 (80.0-100.0) fL MCH 29.2 (25.0-35.0) pg MCHC 33.0 (31.0-37.0) g/dL RDW 14.6 (11.5-15.5) % Plt Count 219 (150-450) k/uL Neutrophils % 84 % Lymphocytes % 8 % Monocytes % 6 % Eosinophils % 2 % Basophils % 0 % Neutrophils # 5.9 (1.3-7.7) k/uL Lymphocytes # 0.5 L (1.0-4.8) k/uL Monocytes # 0.4 (0-1.0) k/uL Eosinophils # 0.1 (0-0.7) k/uL Basophils # 0.0 (0-0.2) k/uL Sodium 136 L (137-145) mmol/L Potassium 4.5 (3.5-5.1) mmol/L Chloride 105 (98-107) mmol/L Carbon Dioxide 26 (22-30) mmol/L Anion Gap 5 mmol/L BUN 15 (7-17) mg/dL Creatinine 0.85 (0.52-1.04) mg/dL Est GFR (CKD-EPI)AfAm 76 (>60 ml/min/1.73 sqM) Est GFR (CKD-EPI)NonAf 66 (>60 ml/min/1.73 sqM) Glucose 125 H (74-99) mg/dL Calcium 8.7 (8.4-10.2) mg/dL Total Bilirubin 1.0 (0.2-1.3) mg/dL AST 33 (14-36) U/L ALT 26 (9-52) U/L Alkaline Phosphatase 77 (38-126) U/L Total Protein 5.6 L (6.3-8.2) g/dL Albumin 2.8 L (3.5-5.0) g/dL Urine Color Yellow Urine Appearance Cloudy H (Clear) Urine pH 6.0 (5.0-8.0) Ur Specific [place] 1.008 (1.001-1.035) Urine Protein Trace H (Negative) Urine Glucose (UA) Negative (Negative) Urine Ketones Negative (Negative) Urine Blood Negative (Negative) Urine Nitrite Negative (Negative) Urine Bilirubin Negative (Negative) Urine Urobilinogen <2.0 (<2.0) mg/dL Ur Leukocyte Esterase Trace H (Negative) Urine RBC <1 (0-5) /hpf Urine WBC 3 (0-5) /hpf Ur Squamous Epith Cells 1 (0-4) /hpf Urine Bacteria Rare H (None) /hpf Urine Mucus Rare H (None) /hpf - EKG Data EKG Comments: NSR, vent rate 75, mervin 122, qrs 82, qt/qtc 368/410, no concern for acute ischemia Disposition Clinical Impression: Post-operative pain Disposition: ADMITTED IP TO THIS HOSP
[2018-07-18 13:51] LABS: Basophils % (A) 0 %; Eosinophils # (A) 0.1 k/uL (0-0.7); Eosinophils % (A) 2 %; HGB 10.6 gm/dL (11.4-16.0); Lymphocytes # (A) 0.5 k/uL (1.0-4.8); Lymphocytes % (A) 8 %; MCH 29.2 pg (25.0-35.0); MCV 88.6 fL (80.0-100.0); Mean Platelet Volume 7.2; Monocytes # (A) 0.4 k/uL (0-1.0); Monocytes % (A) 6 %; Neutrophils # (A) 5.9 k/uL (1.3-7.7); Neutrophils % (A) 84 %; Platelet Count 219 k/uL (150-450); RBC 3.61 m/uL (3.80-5.40); RDW 14.6 % (11.5-15.5)
[2018-07-18 14:01] LABS: Albumin 2.8 g/dL (3.5-5.0); Calcium 8.7 mg/dL (8.4-10.2); Potassium 4.5 mmol/L (3.5-5.1); Total Protein 5.6 g/dL (6.3-8.2)
--- NOTE | 2018-07-18 15:11 | XR ---
EXAMINATION TYPE: XR chest 2V DATE OF EXAM: 07/18/2018 COMPARISON: 03/07/2014 INDICATION: Pain, left knee swelling TECHNIQUE: Frontal and lateral views of the chest are obtained. FINDINGS: The heart size is normal. The pulmonary vasculature is normal. The lungs are clear. IMPRESSION: 1. No acute pulmonary process.
[2018-07-18 16:15] LABS: Appearance,Urine Cloudy (Clear); Bacteria,Urine Rare /hpf; Bilirubin,Urine Negative (Negative); Blood,Urine Negative (Negative); Color,Urine Yellow; Glucose,Urine (UA) Negative (Negative); Ketones,Urine Negative (Negative); Leukocyte Esterase,Urine Trace (Negative); Mucus,Urine Rare /hpf; Nitrite,Urine Negative (Negative); Protein,Urine Trace (Negative); RBC,Urine <1 /hpf (0-5); Specific Gravity,Urine 1.008 (1.001-1.035); Squamous Epithelial Cell,Urine 1 /hpf (0-4); Urobilinogen,Urine <2.0 mg/dL (<2.0)
[2018-07-18] MEDS ORDERED: NALOXONE 0.4 MG/ML 1 ML VIAL IV PRN (17:19)
[2018-07-18] MEDS ORDERED: ARTIFICIAL TEARS-HYPROMELLOSE DROPS 15 ML BTL BOTH EYES PRN (20:21)
[2018-07-18] MEDS ORDERED: traMADol 50 MG TAB PO PRN (20:21)
--- NOTE | 2018-07-19 07:54 | P.CNOR ---
History of Present Illness - HPI Consult date: 07/19/18 History of present illness: This is a 78-year-old female who is just discharged to home on 07/16/2018 on postoperative day #2 status post total left knee arthroplasty. The patient states that when she went home she immediately fell and had difficulty with ambulation around the house. The patient is angry in fairly agitated this morning. She states that during her prior admission physical therapy never worked with her at all. I did review her previous visit in 5 separate physical therapy evaluation and progress notes. She did refuse therapy at least twice during her prior visit. She is readmitted last evening through the emergency department secondary to decreased mobility and increased pain. Past Medical History Past Medical History: Hyperlipidemia, Osteoarthritis (OA), Pneumonia Additional Past Medical History / Comment(s): varicose veins, pneumonia 2-3 years ago, hx ulcer History of Any Multi-Drug Resistant Organisms: None Reported Past Surgical History: Bladder Surgery, Section, Cholecystectomy, Hernia Repair, Hysterectomy, Joint Replacement, Orthopedic Surgery, Tubal Ligation Additional Past Surgical History / Comment(s): D&C, arthoscopy right knee, right knee replacement, colonoscopy, EGD, AMBERLY CATARACTS Past Anesthesia/Blood Transfusion Reactions: Postoperative Nausea & Vomiting ( PONV) Additional Past Anesthesia/Blood Transfusion Reaction / Comm: states with spinal anesthesia Past Psychological History: No Psychological Hx Reported Smoking Status: Never smoker Past Alcohol Use History: None Reported Past Drug Use History: None Reported - Past Family History Father Family Medical History: Cancer Medications and Allergies Home Medications Medication Instructions Recorded Confirmed Type Propylene Glycol/Peg 400/Pf 1 drop BOTH EYES DAILY PRN 07/14/18 07/18/18 History [Systane 0.3-0.4% Eye Drop] Meloxicam [Mobic] 7.5 mg PO DAILY #30 tab 07/16/18 07/18/18 Rx traMADol HCL [Ultram] 50 mg PO Q6HR PRN #50 tab 07/16/18 07/18/18 Rx Atorvastatin [Lipitor] 10 mg PO DAILY 07/18/18 07/18/18 History Allergies Allergy/AdvReac Type Severity Reaction Status Date / Time hydrocodone [From [place]] AdvReac Nausea & Verified 07/18/18 12:40 Vomiting Physical Examination This is a 78-year-old female in no acute distress. She is alert and oriented 3. Exam of the lower extremity reveals Dermabond tape intact over the incision. There is no erythema or ecchymosis. No drainage. There is mild-to- moderate swelling to the knee and calf. She has full foot and ankle motion without difficulty or pain. Neurovascular status to the lower extremity is intact. The remainder of her musculoskeletal exam is unremarkable. Results Chest x-ray taken in the emergency department reveals no acute process. - Labs Labs: Abnormal Lab Results - Last 24 Hours (Table) 07/18/18 07/18/18 07/18/18 Range/Units 13:39 13:39 15:35 RBC 3.61 L (3.80-5.40) m/uL Hgb 10.6 L (11.4-16.0) gm/dL Hct 32.0 L (34.0-46.0) % Lymphocytes # 0.5 L (1.0-4.8) k/uL Sodium 136 L (137-145) mmol/L Glucose 125 H (74-99) mg/dL Total Protein 5.6 L (6.3-8.2) g/dL Albumin 2.8 L (3.5-5.0) g/dL Urine Appearance Cloudy H (Clear) Urine Protein Trace H (Negative) Ur Leukocyte Esterase Trace H (Negative) Urine Bacteria Rare H (None) /hpf Urine Mucus Rare H (None) /hpf H & H 07/18/18 Range/Units 13:39 Hgb 10.6 L (11.4-16.0) gm/dL Hct 32.0 L (34.0-46.0) % Result Diagrams: 07/18/18 13:39 07/18/18 13:39 Assessment and Plan (1) Hyperlipidemia Current Visit: No Status: Acute Code(s): E78.5 - HYPERLIPIDEMIA, UNSPECIFIED SNOMED Code(s): 36903446 (2) Macular degeneration Current Visit: No Status: Acute Code(s): H35.30 - UNSPECIFIED MACULAR DEGENERATION SNOMED Code(s): 410734020 (3) Osteoarthritis of left knee Current Visit: No Status: Acute Code(s): M17.12 - UNILATERAL PRIMARY OSTEOARTHRITIS, LEFT KNEE SNOMED Code(s): 850236480243201 (4) S/P total knee arthroplasty Current Visit: No Status: Acute Code(s): Z96.659 - PRESENCE OF UNSPECIFIED ARTIFICIAL KNEE JOINT SNOMED Code(s): 9406519856289 Plan: The clinical findings are discussed with the patient. We had a long discussion reviewing her care drain her last admission. The patient was very argumentative throughout our discussion. She has multiple complaints regarding her care ranging from physical therapy to her drinking water been too cold. I have discussed all these issues with her nurse for today. I have ordered physical therapy and occupational therapy for rehab evaluation. She may be transferred to inpatient rehab Saturday if cleared medically.
[2018-07-19] MEDS: ACETAMINOPHEN TAB 325 MG TAB PO PRN ×2 (10:00→22:57)
[2018-07-19] MEDS: ATORVASTATIN 10 MG TAB PO SCH (10:02)
[2018-07-19] MEDS: MELOXICAM 7.5 MG TAB PO SCH (10:02)
[2018-07-19] MEDS ORDERED: MELATONIN 3 MG TABLET PO PRN (14:39)
[2018-07-19] MEDS ORDERED: ALPRAZolam 0.25 MG TAB PO PRN (14:39)
--- NOTE | 2018-07-19 15:35 | HP ---
HISTORY AND PHYSICAL DATE OF SERVICE: 07/19/2018 I am covering for Dr. Kearns. CHIEF COMPLAINT: Left knee pain and fall. HISTORY OF PRESENT ILLNESS: This 78-year-old woman with past medical history of multiple medications including hyperlipidemia, DJD, history of pneumonia, history of bladder surgery being followed by Dr. Khanh Kearns in the outpatient setting had recently had left knee joint arthroplasty by Dr. Sharma. The patient was recently discharged but apparently patient had a fall and patient had difficulty in ambulation. Patient came to [facility] and admitted for further evaluation and treatment. There is no history of any fever or rigors. No history of headache, loss of consciousness or seizures. PAST MEDICAL HISTORY: Hypertension, hyperlipidemia, history of pneumonia, history of bladder surgery. MEDICATIONS: Medications prior to admission including home medications are: 1. Systane eye drops. 2. Mobic 7.5 daily. 3. Lipitor 10 mg daily. 4. Ultram 50 mg q.6 p.r.n. ALLERGIES: HYDROCODONE. FAMILY HISTORY: History of cancer in the family. SOCIAL HISTORY: No history of smoking. Occasional alcohol. REVIEW OF SYSTEMS: ENT: No diminished hearing or diminished vision. CARDIOVASCULAR SYSTEM: No angina. RESPIRATORY SYSTEM: No cough or wheezing. GI: No nausea. : No dysuria. NERVOUS SYSTEM: No numbness or weakness. ALLERGY/IMMUNOLOGY: No history of asthma or hayfever. MUSCULOSKELETAL: As mentioned earlier. HEMATOLOGY/ONCOLOGY: No history of anemia. ENDOCRINE: No history of diabetes mellitus or hypothyroidism. CONSTITUTIONAL: As mentioned earlier. DERMATOLOGY: Negative. RHEUMATOLOGY: Negative. PSYCHIATRY: As mentioned earlier. PHYSICAL EXAMINATION: The patient is alert and oriented x3. Pulse 91, blood pressure 153/83, respiration 18, temperature 98.4, pulse ox 95% on room air. HEENT: Conjunctivae normal. Oral mucosa moist. Neck is no jugular venous distention. No carotid bruit. No lymph node enlargement. CARDIOVASCULAR: S1, S2 muffled. RESPIRATORY: Breath sounds diminished at the bases. No rhonchi, no crackles. ABDOMEN: Soft, nontender. No mass palpable. LEGS: Status post left knee arthroplasty. NERVOUS SYSTEM: No focal deficits. LABS: WBC is 7, hemoglobin 10.6. Sodium 136. Albumin is 2.8. UA noted, no evidence of UTI. The chest x-ray shows no acute pulmonary process. EKG shows no acute changes. ASSESSMENT: 1. Status post fall and gait dysfunction. 2. History of recent left knee arthroplasty. 3. Hyperlipidemia. 4. Degenerative joint disease. 5. History of pneumonia. 6. History of section. 7. History of cholecystectomy. RECOMMENDATIONS AND DISCUSSION: This 78-year-old woman presented with multiple complex medical issues, we will monitor the patient closely. Continue the current medications, continues symptomatic treatment. I recommend pain medications, DVT prophylaxis, PT, OT evaluation, orthostatic vitals. We will follow the patient closely with inpatient rehab as well. The prognosis guarded because of multiple complex medical issues. Further recommendations to follow. A copy of dictation forwarded to Dr. Kearns who is the primary physician. Resume the home medications. MMODL / IJN: [id number] /
[2018-07-19] MEDS: HEPARIN SODIUM,PORCINE 5,000 UNIT/ML 1 ML VIAL SQ SCH (22:57)
[2018-07-20 07:57] LABS: Basophils % (A) 0 %; Eosinophils # (A) 0.4 k/uL (0-0.7); Eosinophils % (A) 6 %; HCT 34.6 % (34.0-46.0); HGB 10.8 gm/dL (11.4-16.0); Lymphocytes # (A) 1.2 k/uL (1.0-4.8); Lymphocytes % (A) 18 %; MCH 28.2 pg (25.0-35.0); MCHC 31.2 g/dL (31.0-37.0); MCV 90.5 fL (80.0-100.0); Mean Platelet Volume 6.8; Monocytes # (A) 0.4 k/uL (0-1.0); Monocytes % (A) 6 %; Neutrophils # (A) 4.5 k/uL (1.3-7.7); Neutrophils % (A) 68 %; Platelet Count 299 k/uL (150-450); RBC 3.82 m/uL (3.80-5.40); RDW 14.5 % (11.5-15.5); WBC 6.6 k/uL (3.8-10.6)
[2018-07-20 08:15] LABS: Anion Gap 9 mmol/L; Blood Urea Nitrogen 12 mg/dL (7-17); Calcium 8.7 mg/dL (8.4-10.2); Carbon Dioxide 24 mmol/L (22-30); Chloride 106 mmol/L (98-107); Glucose 104 mg/dL (74-99); Sodium 139 mmol/L (137-145)
[2018-07-20] MEDS: PANTOPRAZOLE 40 MG TABLET PO SCH (09:25)
[2018-07-20] MEDS: ATORVASTATIN 10 MG TAB PO SCH (09:26)
[2018-07-20] MEDS: MELOXICAM 7.5 MG TAB PO SCH (09:26)
[2018-07-20] MEDS: ACETAMINOPHEN TAB 325 MG TAB PO PRN ×2 (09:27→17:14)
[2018-07-20] MEDS: HEPARIN SODIUM,PORCINE 5,000 UNIT/ML 1 ML VIAL SQ SCH ×2 (09:27→20:18)
--- NOTE | 2018-07-20 11:09 | P.PN ---
Subjective Progress Note Date: 07/20/18 Principal diagnosis: Status post total left knee arthroplasty. This is a 78-year-old female readmitted after total left knee arthroplasty with pain management issues and inability to ambulate independently and care for herself. The patient has been significantly agitated and despite doesn't since her readmission. She is very angry with the nurses and has multiple complaints about her care. She is very angry with me stating that I "pushed her out of the hospital". She states that she is unable to ambulate secondary to pain, however, she was up last night ambulating in the hallway on her own according to nursing staff. It is difficult to get information from her today. She refuses to speak with me. She will not tell me what is bothering her and is demanding to see a patient advocate. When I asked if I could evaluate her left leg she stated "well, it's right there". I explained her that that is not consent and asked again if she would like me to evaluate her leg and she said "fine". Objective - Vital Signs Vital signs: Vital Signs Temp 98.7 F 07/20/18 08:11 Pulse 82 07/20/18 08:11 Resp 16 07/20/18 08:11 BP 153/76 07/20/18 08:11 Pulse Ox 95 07/20/18 08:11 Intake & Output 07/19/18 07/20/18 07/20/18 18:59 06:59 18:59 Other: Voiding Method Toilet Toilet # Voids 1 - Exam This is a 78-year-old female in no acute distress. She is visibly angry and agitated. Exam of the left lower extremity reveals that her Dermabond tape is intact. She has moderate swelling to the knee and calf. There is no erythema, mild ecchymosis about the knee. There is mild calf pain with palpation. Mild calf pain with dorsiflexion of the foot. Pedal pulse +2/4. - Labs CBC & Chem 7: 07/20/18 06:45 07/20/18 06:45 Labs: Abnormal Lab Results - Last 24 Hours (Table) 07/20/18 07/20/18 Range/Units 06:45 06:45 Hgb 10.8 L (11.4-16.0) gm/dL Glucose 104 H (74-99) mg/dL Assessment and Plan (1) Hyperlipidemia Current Visit: No Status: Acute Code(s): E78.5 - HYPERLIPIDEMIA, UNSPECIFIED SNOMED Code(s): 66178056 (2) Macular degeneration Current Visit: No Status: Acute Code(s): H35.30 - UNSPECIFIED MACULAR DEGENERATION SNOMED Code(s): 176045593 (3) Osteoarthritis of left knee Current Visit: No Status: Acute Code(s): M17.12 - UNILATERAL PRIMARY OSTEOARTHRITIS, LEFT KNEE SNOMED Code(s): 854645230417062 (4) S/P total knee arthroplasty Current Visit: No Status: Acute Code(s): Z96.659 - PRESENCE OF UNSPECIFIED ARTIFICIAL KNEE JOINT SNOMED Code(s): 6053585141295 Plan: The clinical findings are discussed with the patient. I will order a venous Doppler of her left lower extremity to rule out DVT. I again tried to discuss her care and her complaints regarding her care. The patient refuses to speak with me and will only say that she wants to see a patient advocate, right now. I was able to call the administrative charge. Patient advocate is not here on the weekends. Kateryna from administrative charge did come up and speak with the patient. Please see her documentation regarding their discussion. She continues to be noncompliant according to nursing staff. I have been advised by administrative charge to avoid seeing the patient if possible, and recommends that anyone who sees the patient have a witness to their interactions. I have discussed the case with Dr. Sharma who will see the patient as well. Dr. Sharma has recommended that we consult psychiatry for evaluation since her behavior is quite different than what we saw preoperatively.
--- NOTE | 2018-07-20 12:24 | US ---
EXAMINATION TYPE: US venous doppler duplex LE LT DATE OF EXAM: 07/20/2018 12:13 PM COMPARISON: NONE CLINICAL HISTORY: calf pain, s/p tka. SIDE PERFORMED: Left TECHNIQUE: The lower extremity deep venous system is examined utilizing real time linear array sonog dereck with graded compression, doppler sonography and color-flow sonography. VESSELS IMAGED: External Iliac Vein (EIV) Common Femoral Vein Deep Femoral Vein Greater Saphenous Vein * Femoral Vein Popliteal Vein Small Saphenous Vein * Proximal Calf Veins (* superficial vessels) Left Leg: Negative for DVT IMPRESSION: No evidence for DVT.
--- NOTE | 2018-07-20 19:32 | P.CN ---
Psychiatric Consult - . Consult date: 07/20/18 Consult:: 07/20/18 19:26 Chief Complaint: Agitation HPI : Ms. Moreno is 78 yo single Female with no prior psych history admitted here for medical reasons. Reportedly she has been acting out strange at times. She is getting agitated with staff and accusing them for neglect. She is upset at staff for not telling her correct information and confusing her. She is confused about her discharge plans. She has seen patient advocate this afternoon. She denies feeling depressed, anxious, manic or psychotic. Never seen a psychiatrist or took any psychotropics. She denies symptoms of psychoses , mood swings or OCD to me. Past Psych Hx : Not significant MSE : Alert, awake, oriented x 4. Has poor eye contact. Speech soft. Mood irritable and angry with congruent affect. Has no suicidal ideation. No psychoses. Memory intact. Insight and judgment fair. 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 She requires intermodal dispatcher counselling. It is advised that staff and providers set strong boundaries with patient and not enable her maladaptive pattern of behaviors. Psychiatry will sign off
[2018-07-20] MEDS: VIT A,C & E-LUTEIN-MINERALS 1 EACH TAB PO SCH (20:19)
--- NOTE | 2018-07-20 23:33 | PN ---
PROGRESS NOTE DATE OF SERVICE: 07/20/2018 I am covering for Dr. Kearns. This 78-year-old woman who was admitted with fall, also had a recent left knee surgery. No chest pain. No palpitations. No fever. EXAM: Alert and oriented. Pulse is 82, blood pressure 150/76, respirations 16, temperature 98.7, pulse ox 94% on room air. Patient is alert, oriented x3. Pulse 115, blood pressure 139/70, respiration 18, temperature 98.8, pulse ox 98% on room air. HEENT: Conjunctivae normal. Oral mucosa. NECK: No jugular venous distention. No lymph node enlargement. CARDIOVASCULAR: S1, S2. RESPIRATORY: Diminished breath sounds at the bases. A few scattered rhonchi, no crackles. ABDOMEN: Soft, nontender. LEGS: No swelling. NERVOUS SYSTEM: No focal deficits. LAB STUDIES: WBC 6, hemoglobin 10.8 sodium 139, potassium 4. ASSESSMENT: 1. Status post fall and gait dysfunction. 2. History of recent left total knee joint arthroplasty. 3. Hyperlipidemia. 4. DJD. 5. History of pneumonia. 6. History of section. 7. History of cholecystectomy. RECOMMENDATIONS: Recommend to continue current medications, continue to monitor, continue symptomatic treatment. Otherwise, we will monitor the patient closely. Orthopedic evaluation, PT and OT evaluation. bushel worker is to evaluate the home situation for possible ECF rehab. Otherwise, a psych consultation also has been requested at this time. Further recommendations to follow. Dr. Kearns will follow. MMODL / IJN: [id number] /
[2018-07-21 00:10] VITALS: RESP 16
[2018-07-21] MEDS: ACETAMINOPHEN TAB 325 MG TAB PO PRN ×2 (00:16→09:19)
--- NOTE | 2018-07-21 06:31 | P.CONS ---
History of Present Illness - Chief Complaint Walking difficulty - History of Present Illness I had the opportunity to see patient for inpatient rehab consultation with regard to walking difficulty. Patient was originally admitted to hospital for left TKA performed by Dr. Sharma. Reports of refusing therapy. Readmitted July 18 with history of walking difficulty at home. PT reports supervision to modified independent with transfers and gait 150 feet with roller walker. OT prescribed. Left leg Doppler negative for DVT. Chest x-ray negative. Previous functional history as elicited from patient: 78-year-old right-handed white female who is lives in one floor home with 60-year-old disabled son. Retired. Patient independent with cooking, laundry, driving, standing shower. Has been using standard cane for last 5 days. Denies tobacco or alcohol. Dr. Kearns is regular doctor. Family history father was a smoker. Review of Systems Review of systems: ENT: Denies sneezes or discharge. Eyes: Denies discharge or photophobia. Cardiac: Denies chest pain or palpitation. Pulmonary: Denies cough or shortness of breath. Breast: Denies discharge or lumps. Gastrointestinal: Denies nausea, emesis, constipation, diarrhea. Genitourinary: Denies discharge or frequency. Musculoskeletal: Left knee discomfort. Neurologic: Denies motor or sensory change. Endocrine: Denies shakes or sweats. Oncology: Denies cancers. Dermatologic: Denies rash, itching, pruritus. ALLERGY/immunology: Denies sneezes, rashes. Past Medical History Past Medical History: Hyperlipidemia, Osteoarthritis (OA), Pneumonia Additional Past Medical History / Comment(s): varicose veins, pneumonia 2-3 years ago, hx ulcer History of Any Multi-Drug Resistant Organisms: None Reported Past Surgical History: Bladder Surgery, Section, Cholecystectomy, Hernia Repair, Hysterectomy, Joint Replacement, Orthopedic Surgery, Tubal Ligation Additional Past Surgical History / Comment(s): D&C, arthoscopy right knee, right knee replacement, colonoscopy, EGD, AMBERLY CATARACTS Past Anesthesia/Blood Transfusion Reactions: Postoperative Nausea & Vomiting ( PONV) Additional Past Anesthesia/Blood Transfusion Reaction / Comm: states with spinal anesthesia Past Psychological History: No Psychological Hx Reported Smoking Status: Never smoker Past Alcohol Use History: None Reported Past Drug Use History: None Reported - Past Family History Father Family Medical History: Cancer Medications and Allergies Home Medications Medication Instructions Recorded Confirmed Type Propylene Glycol/Peg 400/Pf 1 drop BOTH EYES DAILY PRN 07/14/18 07/18/18 History [Systane 0.3-0.4% Eye Drop] Meloxicam [Mobic] 7.5 mg PO DAILY #30 tab 07/16/18 07/18/18 Rx traMADol HCL [Ultram] 50 mg PO Q6HR PRN #50 tab 07/16/18 07/18/18 Rx Atorvastatin [Lipitor] 10 mg PO DAILY 07/18/18 07/18/18 History Vit C/E/Zn/Coppr/Lutein/Zeaxan 1 cap PO BID 07/20/18 07/20/18 History [Preservision Areds 2 Softgel] Allergies Allergy/AdvReac Type Severity Reaction Status Date / Time hydrocodone [From [place]] AdvReac Nausea & Verified 07/18/18 12:40 Vomiting Physical Exam Vitals: Vital Signs Temp Pulse Pulse Resp BP Pulse Ox 07/21/18 06:20 84 164/84 07/21/18 02:38 78 16 183/69 95 07/20/18 23:00 98.8 F 84 16 173/80 95 07/20/18 21:47 65 165/70 07/20/18 20:13 98.0 F 87 18 173/77 97 07/20/18 17:05 98.8 F 81 16 185/97 100 07/20/18 08:11 98.7 F 82 16 153/76 95 Intake and Output 07/20/18 07/20/18 07/21/18 14:59 22:59 06:59 Output Total 300 Balance -300 Output: Urine 300 Other: # Voids 1 1 # Bowel Movements 3 Skin: Good color, texture, turgor. General: Medium build and comfortable appearance. Head: Normocephalic, atraumatic. Eyes: Symmetric. Pupils equal round. Ears: Symmetric. Hearing within normal limits. Mouth: Clear. Neck: Supple. Carotid without bruit. Cardiac: Regular rate and rhythm. Lungs: Clear anteriorly and posteriorly. Abdomen: Soft active nontender. Extremities: Normal tone. Neurological: Mental status: Alert, cooperative, pleasant. Cranial nerves: Symmetric facial tone and trapezius. Motor: Normal strength and isolation all 4 limbs giveaway weakness left leg. Sensation: Intact throughout. DTRs: Symmetric and equal throughout. Mobility: Bed mobility without assistance. Results CBC & Chem 7: 07/20/18 06:45 07/20/18 06:45 Labs: Abnormal Lab Results - Last 24 Hours (Table) 07/20/18 07/20/18 Range/Units 06:45 06:45 Hgb 10.8 L (11.4-16.0) gm/dL Glucose 104 H (74-99) mg/dL Assessment and Plan (1) S/P total knee arthroplasty Current Visit: No Status: Acute Code(s): Z96.659 - PRESENCE OF UNSPECIFIED ARTIFICIAL KNEE JOINT SNOMED Code(s): 4492285150614 Plan: Impression: 1. Osteoarthritis, status post left TKA. 2. Acute pain syndrome left knee. 3. Dyslipidemia. Comments and plan: At this time PT ongoing. Patient technically do good for inpatient rehab per insurance criteria. Will review OT notes when they become available.
[2018-07-21 08:21] LABS: Basophils % (A) 0 %; Eosinophils # (A) 0.4 k/uL (0-0.7); Eosinophils % (A) 7 %; Hypochromasia Slight; Lymphocytes % (A) 17 %; MCH 28.2 pg (25.0-35.0); MCHC 31.3 g/dL (31.0-37.0); MCV 90.2 fL (80.0-100.0); Mean Platelet Volume 6.7; Monocytes # (A) 0.3 k/uL (0-1.0); Monocytes % (A) 4 %; Neutrophils % (A) 70 %; Platelet Count 341 k/uL (150-450); RBC 3.54 m/uL (3.80-5.40); RDW 14.8 % (11.5-15.5); WBC 5.8 k/uL (3.8-10.6)
[2018-07-21 08:32] LABS: Calcium 8.7 mg/dL (8.4-10.2); Potassium 4.1 mmol/L (3.5-5.1)
[2018-07-21] MEDS: ATORVASTATIN 10 MG TAB PO SCH (09:17)
[2018-07-21] MEDS: PANTOPRAZOLE 40 MG TABLET PO SCH (09:17)
[2018-07-21] MEDS: MELOXICAM 7.5 MG TAB PO SCH (09:17)
[2018-07-21] MEDS: VIT A,C & E-LUTEIN-MINERALS 1 EACH TAB PO SCH (09:17)
[2018-07-21] MEDS: HEPARIN SODIUM,PORCINE 5,000 UNIT/ML 1 ML VIAL SQ SCH (09:18)
--- NOTE | 2018-07-21 11:07 | P.DS ---
Providers Date of admission: 07/18/18 17:21 Expected date of discharge: 07/21/18 Attending physician: Khanh Kearns Consults: 07/18/18 17:22 Consult Physician Stat Consulting Provider: Urbano Sharma Consult Reason/Comments: Pain with ambulation, unable to complete ADL's Do you want consulting provider notified?: Yes 07/19/18 09:59 Consult Physician Routine Consulting Provider: Stanford Garcia Consult Reason/Comments: inpatient rehab request Do you want consulting provider notified?: Yes 07/20/18 10:33 Consult Physician Routine Consulting Provider: Woody Pitts Consult Reason/Comments: eval mental status Do you want consulting provider notified?: Yes Primary care physician: Khanh Kearns Hospital Course: 78-year-old female who presented to the emergency room after sustaining a fall at home. The patient was recently admitted to the hospital and underwent a left total knee arthroplasty. She was discharged home in stable condition at that time. Orthopedics evaluated the patient during this hospitalization. A Doppler of the left lower extremity was completed which was negative for DVT. The patient has had some labile moods during hospitalization and has been upset with orthopedics and some of the nursing staff. A psychiatric consultation was placed per orthopedics. Psychiatry evaluated the patient and stated that the patient had some traits of borderline personality disorder and recommended long-term counseling. No further recommendations were made and psychiatry signed off. The patient continues to have difficulties ambulating and requires rehab at the time of discharge. She is medically stable for discharge today to rehab facility once rehab arrangements are finalized. DISCHARGE DIAGNOSIS: Recent left total knee arthroplasty Fall from standing Gait dysfunction/Difficulty ambulating Nurse practitioner note has been reviewed by physician. Signing provider agrees with the documented findings, assessment, and plan of care. Plan - Discharge Summary New Discharge Prescriptions: New Acetaminophen Tab [Tylenol] 650 mg PO Q6HR PRN tab PRN Reason: Mild Pain Or Fever > 100.5 Melatonin 3 mg PO HS PRN tablet PRN Reason: Insomnia Continue Propylene Glycol/Peg 400/Pf [Systane 0.3-0.4% Eye Drop] 1 drop BOTH EYES DAILY PRN PRN Reason: DRY EYES Meloxicam [Mobic] 7.5 mg PO DAILY #30 tab Atorvastatin [Lipitor] 10 mg PO DAILY Vit C/E/Zn/Coppr/Lutein/Zeaxan [Preservision Areds 2 Softgel] 1 cap PO BID Discontinued traMADol HCL [Ultram] 50 mg PO Q6HR PRN #50 tab PRN Reason: Pain Discharge Medication List Propylene Glycol/Peg 400/Pf [Systane 0.3-0.4% Eye Drop] 1 drop BOTH EYES DAILY PRN 07/14/18 [History] Meloxicam [Mobic] 7.5 mg PO DAILY #30 tab 07/16/18 [Rx] Atorvastatin [Lipitor] 10 mg PO DAILY 07/18/18 [History] Vit C/E/Zn/Coppr/Lutein/Zeaxan [Preservision Areds 2 Softgel] 1 cap PO BID 07/20 [History] Acetaminophen Tab [Tylenol] 650 mg PO Q6HR PRN tab 07/21/18 [Rx] Melatonin 3 mg PO HS PRN tablet 07/21/18 [Rx] Follow up Appointment(s)/Referral(s): Khanh Kearns DO [Primary Care Provider] - 1 Week (1 week after DC from rehab) Urbano Sharma MD [STAFF PHYSICIAN] - 1 Week Discharge Disposition: TRANSFER TO SNF/ECF
[2018-07-21 15:19] VITALS: BP 149/83; PULSE 76; TEMP 98.5
== END 2018-07-21 16:45 ==
LOC: EC 11:33 → 4SSUR 17:21
PROVIDERS: ADMIT Family Medicine; ATTEND Family Medicine
DX: G89.18 Other acute postprocedural pain (principal); M25.562 Pain in left knee; E78.5 Hyperlipidemia, unspecified; H35.30 Unspecified macular degeneration; R26.9 Unspecified abnormalities of gait and mobility; I10 Essential (primary) hypertension; W18.30XA Fall on same level, unspecified, initial encounter; Y92.009 Unspecified place in unspecified non-institutional (private) residence as the place of occurrence of the external cause; Z87.01 Personal history of pneumonia (recurrent); Z90.49 Acquired absence of other specified parts of digestive tract; Z90.710 Acquired absence of both cervix and uterus; Z96.653 Presence of artificial knee joint, bilateral; Z79.1 Long term (current) use of non-steroidal anti-inflammatories (NSAID); Z79.899 Other long term (current) drug therapy; Z88.5 Allergy status to narcotic agent; Z98.51 Tubal ligation status; Z98.42 Cataract extraction status, left eye; Z98.41 Cataract extraction status, right eye; Z80.9 Family history of malignant neoplasm, unspecified
CPT/HCPCS: 96372 ×3; 99285; 36415; 93005; 97116 ×2; 97161; 97166; 80053; 80048 ×2; 85025 ×3; 81001; 71046; 93971; G0378 ×4; J1644 ×3

== ENCOUNTER → 2021-06-05 | Outpatient (CLI) | payer MEDICARE, BC ==
--- NOTE | 2021-06-05 12:13 | XR ---
Bilateral knees HISTORY: Bilateral knee pain 3 views of the knees submitted and correlated to left knee dated 07/14/2018, right knee 03/05/2014 The left knee shows post arthroplasty change, there is anatomic alignment. No evident joint effusion. No fracture or dislocation. There are atherosclerotic vascular calcifications noted incidentally. On the oblique view there is a questionable of small loose body superimposed over the lateral aspect of the joint, on the lateral view multiple vague areas of density are present anteriorly. The right knee shows post arthroplasty change with anatomic alignment normal. No fracture or dislocat ion. On the lateral view between the prosthetic components anteriorly there is a metallic density pre sent which is indeterminate, they be related to spacer of the arthroplasty, difficult to exclude a lo ose body which is seen on the oblique view possibly within the lateral compartment level. Atherosclerotic vascular calcifications are present. No evident joint effusion bilaterally. IMPRESSION: Bilateral knee arthroplasties, vague densities associated at the joint spaces as describe mary
== END | disposition home or self-care (01) ==
LOC: RADXRMAIN 09:35
PROVIDERS: ATTEND Family Medicine
DX: M25.561 Pain in right knee (principal); M25.562 Pain in left knee; Z96.653 Presence of artificial knee joint, bilateral

== ENCOUNTER → 2024-09-18 | Outpatient (CLI) | payer MEDICARE, BC ==
--- NOTE | 2024-09-18 10:22 | XR ---
EXAMINATION TYPE: XR lumbar spine 2 or 3V DATE OF EXAM: 09/18/2024 10:16 AM COMPARISON: None. CLINICAL INDICATION: Female, 84 years old with history of M54.50 LOW BACK PAIN, pain TECHNIQUE: Frontal and lateral images of the lumbar spine are obtained. FINDINGS: There are 5 lumbar type vertebral bodies identified. There is dextroconvex scoliosis cente red at L2-L3 level. There is grade 1 anterolisthesis of L4 on L5. Vertebral body heights are maintain ed. There is moderate to severe disc space narrowing L3-L4 through L5-S1 level. Overlying Vascular ca lcification and cholecystectomy clips are noted. IMPRESSION: As above. [facility], , 09/18/2024 10:20 AM
== END | disposition home or self-care (01) ==
LOC: RADXRMAIN 10:01
PROVIDERS: ATTEND Family Medicine
DX: M43.16 Spondylolisthesis, lumbar region (principal); M51.370 Other intervertebral disc degeneration, lumbosacral region with discogenic back pain only; M41.86 Other forms of scoliosis, lumbar region
CPT/HCPCS: 72100